=== PATIENT | male | born 1990 | race Caucasian/White ===

== ENCOUNTER 2020-04-26 16:27 | Emergency (ER) | payer OTHER ==
--- NOTE | 2020-04-26 17:05 | ER Document Report ---
ED Medical Screen (RME) - General Chief Complaint: Dizziness Stated Complaint: DIZZINESS Time Seen by Provider: 04/26/20 17:01 Mode of Arrival: Ambulatory Information source: Patient Notes: 29-year-old male presented to ED for complaint of dizziness lightheaded feels very dizzy every time he stands up. He states he had surgery for bowel obstruction in mid March came down here on vacation Thursday night he had severe vomiting with blood and diarrhea with blood. He came into the emergency room his hemoglobin was 7.3 got 2 units of blood states that they told him his hemoglobin was 9.1 when he left they attempted to do an endoscopy but they could not see due to food. He states he felt good on Thursday but he was still little dizzy and now every time he stands up he gets very dizzy pale and lightheaded. He states he needs to know where he is at at this time. He states he is continued to be dizzy. He states he is not throwing up or having stool blood anymore. Patient is alert oriented respirations regular nonlabored speaking in full sentences. I have greeted and performed a rapid initial assessment of this patient. A comprehensive ED assessment and evaluation of the patient, analysis of test results and completion of medical decision making process will be conducted by an additional ED providers. 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 Physical Exam - Vital signs Vitals: Temp Pulse Resp BP Pulse Ox 97.7 F 86 16 111/74 100 04/26/20 16:33 04/26/20 16:33 04/26/20 16:33 04/26/20 16:33 04/26/20 16:33 Course - Vital Signs Vital signs: Temp Pulse Resp BP Pulse Ox 97.7 F 86 16 111/74 100 04/26/20 16:33 04/26/20 16:33 04/26/20 16:33 04/26/20 16:33 04/26/20 16:33
[2020-04-26 17:30] LABS: ABSOLUTE BASOPHILS # (AUTO) 0.1 10^3/uL (0.0-0.2); ABSOLUTE EOSINOPHILS # (AUTO) 0.2 10^3/uL (0.0-0.6); ABSOLUTE LYMPHOCYTES (AUTO) 1.8 10^3/uL (0.5-4.7); ABSOLUTE MONOCYTES (AUTO) 0.5 10^3/uL (0.1-1.4); ABSOLUTE NEUT (AUTO) 3.8 10^3/uL (1.7-8.2); BASOPHILS % (AUTO) 1.1 % (0-2); EOSINOPHILS % (AUTO) 3.1 % (0-6); HEMATOCRIT 31.9 % (37.9-51.0); HEMOGLOBIN 10.9 g/dL (13.5-17.0); LYMPHOCYTES % (AUTO) 28.1 % (13-45); MEAN CORPUSCULAR HEMOGLOBIN 29.3 pg (27.0-33.4); MEAN CORPUSCULAR HGB CONC 34.2 g/dL (32.0-36.0); MEAN CORPUSCULAR VOLUME 86 fl (80-97); MONOCYTES % (AUTO) 8.5 % (3-13); PLATELET COUNT 383 10^3/uL (150-450); RED BLOOD COUNT 3.73 10^6/uL (4.35-5.55); RED CELL DISTRIBUTION WIDTH 16.3 % (11.5-14.0); SEGMENTED NEUTROPHILS % (AUTO) 59.2 % (42-78); TOTAL CELLS COUNTED % (AUTO) 100 %; WHITE BLOOD COUNT 6.3 10^3/uL (4.0-10.5)
[2020-04-26 17:46] LABS: ALBUMIN 4.1 g/dL (3.5-5.0); ALKALINE PHOSPHATASE 71 U/L (38-126); ANION GAP 8 (5-19); ASPARTATE AMINO TRANSFERASE 27 U/L (17-59); BILIRUBIN,TOTAL 0.2 mg/dL (0.2-1.3); BLOOD UREA NITROGEN 10 mg/dL (7-20); CALCIUM 9.2 mg/dL (8.4-10.2); CARBON DIOXIDE 26 mmol/L (22-30); CHLORIDE 104 mmol/L (98-107); GLUCOSE 109 mg/dL (75-110)
[2020-04-26 17:47] LABS: APPEARANCE,URINE CLEAR; BILIRUBIN,URINE NEGATIVE (NEGATIVE); COLOR,URINE STRAW; GLUCOSE, URINE NEGATIVE (NEGATIVE); KETONES,URINE NEGATIVE (NEGATIVE); LEUKOCYTE ESTERASE,URINE NEGATIVE (NEGATIVE); NITRITE,URINE NEGATIVE (NEGATIVE); PROTEIN,URINE NEGATIVE (NEGATIVE); URINE SPECIFIC GRAVITY 1.006; UROBILINOGEN,URINE NEGATIVE mg/dL (<2.0)
[2020-04-26 18:16] VITALS: BP 111/67
--- NOTE | 2020-04-26 18:20 | ER Document Report ---
ED Dizziness/Weakness - General Chief Complaint: Dizziness Stated Complaint: DIZZINESS Time Seen by Provider: 04/26/20 17:01 Mode of Arrival: Ambulatory Information source: Patient Notes: 29-year-old male presented to ED for complaint of dizziness. He had a bowel obstruction in mid March with surgery. He then came down here on vacation Thursday night he had vomiting pain with blood in his emesis and blood in his stools. He was here from Thursday until Thursday his blood hemoglobin went down to 7.1. He did get 2 units of blood while he was here he states that they told him his hemoglobin went up to 9.1. They did attempt to do an endoscopy but were not able to see due to the food in his stomach. Thursday he went home he was feeling much better. He states he still gets dizzy sometimes when he stands up and becomes very pale and lightheaded. We did be doing his blood work. His hemoglo bin is 10.9. I did go over all of the blood work with him I did give him a copy of the lab values from his last visit and told him to take these with him to his primary care doctor when he returns home on Thursday. He states he has an appointment with the GI doctor on Thursday next week. - HPI Patient complains to provider of: Dizziness Onset: Last week Onset/Duration: Better Pain Level: Denies Context: Chronic dizziness - Dizzy since his last visit Associated symptoms: Dizzy, Lightheaded Exacerbated by: Change in position Baseline gait: Walks w/o assistance - Related Data Allergies/Adverse Reactions: No Known Allergies Allergy (Unverified 04/23/20 04:35) Past Medical History - General Information source: Patient - Social History Smoking Status: Never Smoker Frequency of alcohol use: Social - He has a 1 by her and drinks for his job but does not get drunk. 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 Lives with: Family Family History: Reviewed & Not Pertinent Patient has suicidal ideation: No Patient has homicidal ideation: No - Past Medical History Cardiac Medical History: Reports: None Pulmonary Medical History: Reports: None EENT Medical History: Reports: None Neurological Medical History: Reports: None Endocrine Medical History: Reports: None Renal/ Medical History: Reports: None Malignancy Medical History: Reports None GI Medical History: Reports: Hx Gastroesophageal Reflux Disease, Hx Endoscopy, Other - Bowel obstruction Skin Medical History: Reports None Psychiatric Medical History: Reports: None Traumatic Medical History: Reports: None Infectious Medical History: Reports: None Past Surgical History: Reports: Hx Abdominal Surgery, Hx Bowel Surgery - 2 prior lysis of adhesions procedures for SBO, Hx Herniorrhaphy - 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 - Immunizations Immunizations up to date: Yes Hx Diphtheria, Pertussis, Tetanus Vaccination: Yes Review of Systems - Review of Systems Constitutional: No symptoms reported EENT: No symptoms reported Cardiovascular: Dizziness, Lightheaded Respiratory: No symptoms reported Gastrointestinal: Abdominal pain - This the pain is much better mostly is the dizziness. denies: Diarrhea, Nausea, Vomiting Genitourinary: No symptoms reported Male Genitourinary: No symptoms reported Musculoskeletal: No symptoms reported Skin: No symptoms reported Hematologic/Lymphatic: No symptoms reported Neurological/Psychological: No symptoms reported -: Yes All other systems reviewed and negative Physical Exam - Vital signs Vitals: Temp Pulse Resp BP Pulse Ox 97.7 F 86 16 111/74 100 04/26/20 16:33 04/26/20 16:33 04/26/20 16:33 04/26/20 16:33 04/26/20 16:33 Interpretation: Normal - General General appearance: Appears well, Alert - HEENT Head: Normocephalic, Atraumatic Eyes: Normal Pupils: PERRL - Respiratory Respiratory status: No respiratory distress Chest status: Nontender Breath sounds: Normal Chest palpation: Normal - Cardiovascular Rhythm: Regular Heart sounds: Normal auscultation Murmur: No - Abdominal Inspection: Normal Distension: No distension Bowel sounds: Normal Tenderness: Nontender Organomegaly: No organomegaly - Back Back: Normal, Nontender - Extremities General upper extremity: Normal inspection, Nontender, Normal color, Normal ROM, Normal temperature General lower extremity: Normal inspection, Nontender, Normal color, Normal ROM, Normal temperature, Normal weight bearing. No: Vamsi's sign - Neurological Neuro grossly intact: Yes Cognition: Normal Orientation: AAOx4 Dayan Coma Scale Eye Opening: Spontaneous F[place]ffe Coma Scale Verbal: Oriented Dayan Coma Scale Motor: Obeys Commands Dayan Coma Scale Total: 15 Speech: Normal Motor strength normal: LUE, RUE, LLE, RLE Sensory: Normal - Psychological Associated symptoms: Normal affect, Normal mood - Skin Skin Temperature: Warm Skin Moisture: Dry Skin Color: Normal Course - Re-evaluation Re-evalutation: 04/26/20 18:24 Rectal exam chaperoned by RODNEY Whiteside. There is no obvious blood but the sample was occult positive. We discussed the exam and history as well as lab work with Dr. muhammad. Dr. muhammad agreed patient could be discharged home to follow-up with his primary care and gastroenterology. He states he has an appointment with gastroenterology on Thursday and will call his primary care doctor tomorrow to discuss the lab work done today. Patient was discharged home. - Vital Signs Vital signs: Temp Pulse Resp BP Pulse Ox 97.7 F 86 16 111/74 100 04/26/20 16:33 04/26/20 16:33 04/26/20 16:33 04/26/20 16:33 04/26/20 16:33 - Laboratory Result Diagrams: 04/26/20 17:10 04/26/20 17:10 Laboratory results interpreted by me: 04/26/20 04/26/20 17:10 17:10 RBC 3.73 L Hgb 10.9 L Hct 31.9 L RDW 16.3 H Lipase 560.3 H Discharge - Discharge Clinical Impression: Dizziness Condition: Stable Disposition: HOME, SELF-CARE Additional Instructions: DIZZINESS: Under normal circumstances, your sense of balance is controlled by a number of signals that your brain receives from several locations: Eyes. No matter what your position, visual signals help you determine where your body is in space and how it's moving. Sensory nerves. These are in your skin, muscles and joints. Sensory nerves send messages to your brain about body movements and positions. Inner ear. The organ of balance in your inner ear is the vestibular labyrinth. It includes loop-shaped structures (semicircular canals) that contain fluid and fine, hair-like sensors that monitor the rotation of your head. Near the semicircular canals are the utricle and saccule, which contain tiny particles called otoconia ([id number]). These particles are attached to sensors that help detect gravity and [id number] motion. Good balance depends on at least two of these three sensory systems working well. For instance, closing your eyes while washing your hair in the shower d oesn't mean you'll lose your balance. Signals from your inner ear and sensory nerves help keep you upright. However, if your central nervous system can't process signals from all of these locations, if the messages are contradictory, or if the sensory systems aren't functioning properly, you may experience loss of balance. Dizziness may have a number of potential causes. These may include: Lightheadedness and other kinds of dizziness Feeling lightheaded is the feeling of being "spaced out" or having the sensation of spinning inside your head. It can also give you the sensation that if your lightheadedness worsens, you might lose consciousness. Causes may include: Inner ear disorders. These abnormalities of your inner ear can lead to illusions of motion and make you feel like you're floating. Anxiety disorders. Certain anxiety disorders, such as panic attacks and a fear of leaving home or being in large, open spaces (agoraphobia), may cause lightheadedness. Hyperventilation. Abnormally rapid breathing that often accompanies anxiety disorders may make you feel lightheaded. Please take all your lab work with you that I gave you to your primary care doct or. Please call him tomorrow to schedule appointment for Thursday. You have any isaac bleeding from vomiting or from stool please return to the emergency room immediately. If you pass out or have any increase in dizziness please return to the emergency room immediately FOLLOW-UP CARE: If you have been referred to a physician for follow-up care, call the physicians office for an appointment as you were instructed or within the next two days. If you experience worsening or a significant change in your symptoms, notify the physician immediately or return to the Emergency Department at any time for re-evaluation.
== END 2020-04-26 18:16 | disposition home or self-care (01) ==
LOC: ER 16:27
DX: R42 Dizziness and giddiness (principal); R19.5 Other fecal abnormalities; K92.0 Hematemesis; R10.9 Unspecified abdominal pain
CPT/HCPCS: 36415; 80053; 81001; 82270; 83690; 85025; 86850; 86900; 86901; 99284